=== PATIENT | female | born 1990 | race African-American/Black ===

== ENCOUNTER → 2017-01-14 | Outpatient (CLI) | payer OTHER ==
[2017-01-14 18:46] LABS: BASO % 0.3 % (0.0-1.0); EOS # 0.1 K/mm3 (0.0-0.50); EOS % 1.9 % (0.0-3.0); LARGE UNSTAINED CELL # 0.1 K/mm3 (0.0-0.4); LARGE UNSTAINED CELL % 1.8 % (0.0-4.0); LYMPH # 1.3 K/mm3 (1.5-6.5); LYMPH % 20.7 % (24.0-44.0); MEAN CORPUSCULAR HGB CONC 31.8 g/dl (32.0-36.5); MEAN CORPUSCULAR VOLUME 88.3 fl (80.0-96.0); MONO # 0.3 K/mm3 (0.0-0.8); MONO % 4.4 % (0.0-5.0); NEUTROPHILS # 4.3 K/mm3 (1.8-7.7); PLATELET COUNT, AUTOMATED 189 k/mm3 (150-450); WHITE BLOOD COUNT 6.1 K/mm3 (4.0-10.0)
[2017-01-14 22:51] LABS: CONTROL LINE INT CTR LINE PRESENT; HIV SCRN NEGATIVE (NEGATIVE); HIV SCRN1 NEGATIVE (NEGATIVE)
[2017-01-15 11:06] LABS: HBsAg Prenatal NEGATIVE (NEGATIVE)
== END ==
LOC: M SMT 10:53
PROVIDERS: ATTEND Advanced Practice Midwife
DX: Z34.83 Encounter for supervision of other normal pregnancy, third trimester (principal)
CPT/HCPCS: 36415; 82950; 85025; 86762; 86780; 86803; 86850; 87086; 87340; 87491; 87591; 87806; J2790

== ENCOUNTER → 2017-01-22 | Outpatient (CLI) | payer OTHER ==
--- NOTE | 2017-01-22 16:39 | REP ---
OB ULTRASOUND: Real-time sonographic evaluation of the gravid uterus is performed. There is a single living intrauterine gestation with estimated gestational age of 33 weeks 4 days. EDC 03/08/2017. BPD 86 mm = 34 weeks 4 days HC 304 mm = 33 weeks 5 days AC 294 mm = 33 weeks 3 days Femur length 66 mm = 33 weeks 6 days HC/AC ratio 1.03 within normal range. Estimated weight 2252 grams. Cervix is closed and measures 6 cm in length. heart rate 133 beats per minute. Amniotic fluid within normal limits, MICHAEL 9.8 within normal of 8.2-24.7. SD ratio 3.45 is slightly above normal range of 2.0-3.0. RI is 0.71 within normal range of 0.59-0.75. SEEN/GROSSLY UNREMARKABLE Lateral ventricles Yes Posterior fossa Yes Upper lip Yes Four-chamber heart Yes LVOT Yes RVOT Yes Stomach Yes Cord insertion Yes Three vessel cord Yes Kidneys Yes Bladder Yes Spine No position: Vertex Placenta: Posterior and to the left, grade 0 with no previa or abruption. Amniotic fluid within normal limits. There may be a nuchal cord. Signed by Abdiel Ko MD 01/22/2017 05:04 P
== END ==
LOC: M SMT 13:53
PROVIDERS: ATTEND Advanced Practice Midwife
DX: Z34.83 Encounter for supervision of other normal pregnancy, third trimester (principal); Z3A.33 33 weeks gestation of pregnancy

== ENCOUNTER → 2017-02-11 | Outpatient (CLI) | payer OTHER ==
--- NOTE | 2017-02-11 14:28 | REP ---
Clinical: Anatomical evaluation. Comparison: 01/22/2017 . Findings: Examination demonstrates a single live intrauterine in cephalic presentation. motion is identified by technologist. Placenta is noted posterolateral towards the left side and grade zero without evidence for placenta previa or abruption. Amniotic fluid volume is lower limits of normal. Nuchal cord cannot be excluded. Gestational age by LMP 32 weeks 3 days with HAIDER 04/05/2017 . Gestational age by current measurements 35 weeks 6 days with HAIDER 03/12/2017 . FHR equals 133 beats per minute. Amniotic fluid index equals 7.8 cm (7.6 - 24.7) Estimated weight 2809 grams ( 45th percentile). Anatomical assessment demonstrates normal structures including cranium, diaphragm, stomach, bladder, and spine. Impression: 1. Single live advanced gestation in cephalic presentation. 2. Amniotic fluid index is lower limits of normal. 3. Estimated weight within normal range based on age by first ultrasound. 4. In conjunction with prior examination anatomical assessment is normal with the exception of evaluation of the lower extremities. 5. Nuchal cord cannot be excluded. Signed by Jered Landrum MD 02/11/2017 02:20 P
[2017-02-11 19:26] LABS: FREE T4 1.08 NG/DL (0.76-1.46)
== END ==
LOC: M SMT 13:13
PROVIDERS: ATTEND Advanced Practice Midwife
DX: Z36 Encounter for antenatal screening of mother (principal); Z3A.35 35 weeks gestation of pregnancy

== ENCOUNTER 2017-03-04 14:11 | Inpatient (IN) | payer OTHER ==
[~2017-03-04] VITALS: Ht 175.3 cm; Wt 120.0 kg
[2017-03-04] VITALS (42 sets, daily range): BP systolic 79–130; BP diastolic 42–78
[2017-03-04] MEDS ORDERED: PRENTAB9 PO (14:29)
[2017-03-04] MEDS ORDERED: OXYTOCIN 30 UNITS IN 0.9% NaCl 500ML IV BAG (J2590) As Ordered ONE (15:18)
[2017-03-04] MEDS ORDERED: LR 1,000 ML IV SCH (15:27)
[2017-03-04] MEDS ORDERED: LACTATED RINGER'S 1000 ML IV STA (15:27)
[2017-03-04 15:59] LABS: MEAN CORPUSCULAR HEMOGLOBIN 29.4 pg (27.0-33.0); MEAN CORPUSCULAR HGB CONC 32.8 g/dl (32.0-36.5); MEAN CORPUSCULAR VOLUME 89.7 fl (80.0-96.0); RED CELL DISTRIBUTION WIDTH 15.8 % (11.5-14.5); WHITE BLOOD COUNT 7.1 K/mm3 (4.0-10.0)
[2017-03-04] MEDS ORDERED: OXYTOCIN DRIP 30 UNITS in APPROPRIATE DILUENT 1 EA IV SCH (16:30)
[2017-03-04] MEDS ORDERED: FENTANYL 2MCG/ML ROPIVACAINE 0.2% IN 0.9% NACL 200ML IVBAG As Ordered ONE (16:33)
[2017-03-04] MEDS ORDERED: diphenhydrAMINE INJ 50MG/ML VIAL (J1200) IV PRN (17:45)
[2017-03-04] MEDS ORDERED: EPIDURAL/PCA KEYS XX PRN (17:45)
[2017-03-04] MEDS ORDERED: REFRIGERATOR IV KEYS XX PRN (17:45)
[2017-03-04] MEDS ORDERED: EPIDURAL COMMENT XX SCH (17:45)
[2017-03-04] MEDS ORDERED: ONDANSETRON 4MG/2ML VIAL (J2405) IV PRN (17:45)
[2017-03-04] MEDS ORDERED: FENTANYL/ROPIVACAINE/NACL BAG 200 ML EPIDURAL SCH (17:45)
[2017-03-04] MEDS ORDERED: ePHEDrine SULFATE 25 MG/5 ML(5MG/ML) SYRINGE IV PRN (17:45)
[2017-03-04] MEDS ORDERED: LACTATED RINGER'S 1000 ML IV PRN (17:45)
[2017-03-04] MEDS ORDERED: NALOXONE INJ 0.4 MG/1 ML VIAL (J2310) IV PRN (17:45)
[2017-03-05] VITALS (11 sets, daily range): BP systolic 84–123; BP diastolic 47–78
[2017-03-05] MEDS ORDERED: OXYTOCIN DRIP 30 UNITS in APPROPRIATE DILUENT 1 EA IV SCH (04:09)
[2017-03-05] MEDS ORDERED: DIBUCAINE 1% OINTMENT 30GM TOP PRN (04:15)
[2017-03-05] MEDS ORDERED: ONDANSETRON 4MG/2ML VIAL (J2405) IV PRN (04:15)
[2017-03-05] MEDS ORDERED: RHOGAM 300 MCG (1500 IU) INJ (J2790) IM SCH (04:15)
[2017-03-05] MEDS ORDERED: PROMETHAZINE 25 MG TAB PO PRN (04:15)
[2017-03-05] MEDS ORDERED: MEASLES,MUMPS,RUBELLA VACCINE INJ (MMR-II) (90707) SC SCH (04:15)
[2017-03-05] MEDS ORDERED: DOCUSATE SODIUM 100 MG CAP PO PRN (04:15)
[2017-03-05] MEDS: LR 1,000 ML IV SCH ×2 (04:39→12:09)
[2017-03-05] MEDS: IBUPROFEN 800 MG TAB PO PRN ×3 (06:50→22:35)
[2017-03-05] MEDS: PRENATAL VITAMIN TAB PO SCH (09:40)
[2017-03-05] MEDS: ACETAMINOPHEN 500 MG TAB PO PRN ×2 (09:40→22:35)
[2017-03-06 05:51] VITALS: BP 117/67
[2017-03-06] MEDS: PRENATAL VITAMIN TAB PO SCH (07:28)
[2017-03-06] MEDS ORDERED: IBUP-1114 PO (10:20)
[2017-03-06] MEDS ORDERED: ACET50TA PO (10:20)
[2017-03-06] MEDS: IBUPROFEN 800 MG TAB PO PRN (10:56)
[2017-03-08] MEDS ORDERED: OXYC1TAB23 PO (10:48)
[2017-03-08] MEDS ORDERED: ZOFR4TAB3 PO (10:49)
== END 2017-03-06 14:00 | disposition home or self-care (01) | DRG 767 ==
LOC: M LDO 14:11 → M LDI 15:16 → M OBS 03-05 05:48
PROVIDERS: ADMIT Obstetrics & Gynecology; ATTEND Obstetrics & Gynecology
PROC: 10D17ZZ Extraction of Products of Conception, Retained, Via Natural or Artificial Opening (ICD-10-PCS; principal; 2017-03-05)
PROC: 10E0XZZ Delivery of Products of Conception, External Approach (ICD-10-PCS; 2017-03-05)
DX: O73.0 Retained placenta without hemorrhage (principal); Z37.0 Single live birth; Z3A.39 39 weeks gestation of pregnancy

== ENCOUNTER 2017-08-06 13:11 | Emergency (ER) | payer OTHER ==
[~2017-08-06] VITALS: Ht 175.3 cm; Wt 109.1 kg
[~2017-08-06 13:11] MED LIST: ACET50TA PO; IBUP-1114 PO; OXYC1TAB23 PO; PRENTAB9 PO; ZOFR4TAB3 PO
[2017-08-06 13:12] VITALS: BP 121/73
[2017-08-06] MEDS ORDERED: IBUP-1022 PO (13:55)
== END 2017-08-06 14:07 | disposition home or self-care (01) ==
LOC: M ED 13:11
DX: M72.2 Plantar fascial fibromatosis (principal)